=== PATIENT | male | born 1975 | race Caucasian/White ===

== ENCOUNTER 2019-07-30 18:06 | Emergency (ER) | payer MEDICAID, MEDICARE, OTHER ==
[~2019-07-30] VITALS: Ht 177.8 cm; Wt 70.0 kg
[2019-07-30 18:14] VITALS: BP 120/82
--- NOTE | 2019-07-30 18:28 | NUR ---
Note undone in EDM - 07/30/19 at 1848 by ROCHELLE BIB [employer]. L2K BY [employer] D/T INABILITY TO CARE HIMSELF. PT DENIES SI/HI. PT MUMBLING BY HIMSELF AND IT DOESN'T MAKE SENSE. PT'S AOX4. RESPS EVEN AND UNLABORED. PT SAID "NO" FOR ALL QUESTIONS WHAT THIS RN ASKED. PT PLACED ON GAWN. PT'S BELONGINGS PUT INTO 2 BAGS AND PUT INTO LOCKER. SITTER MONITORING FROM [facility] FOR SAFETY. ROOM REMAINS SECURE.
--- NOTE | 2019-07-30 18:28 | NUR ---
BIB [employer]. L2K BY RN AT [facility]-WAY D/T INABILITY TO CARE HIMSELF. PT DENIES SI/HI. PT MUMBLING BY HIMSELF AND IT DOESN'T MAKE SENSE. PT'S AOX4. RESPS EVEN AND UNLABORED. PT SAID "NO" FOR ALL QUESTIONS WHAT THIS RN ASKED. PT PLACED ON GAWN. PT'S BELONGINGS PUT INTO 2 BAGS AND PUT INTO LOCKER. SITTER MONITORING FROM [facility] FOR SAFETY. ROOM REMAINS SECURE.
--- NOTE | 2019-07-30 18:37 | NUR ---
PT AWARES OF UA.
--- NOTE | 2019-07-30 18:38 | NUR ---
MEAL TRAY ORDERED AT THIS TIME.
[2019-07-30 18:41] LABS: BASOPHILS # (AUTO) 0.04 x10^3/uL (0-0.1); BASOPHILS % (AUTO) 1 % (0-1); EOSINOPHILS # (AUTO) 0.33 x10^3/uL (0-0.4); EOSINOPHILS % (AUTO) 4 % (1-7); LYMPHOCYTES # (AUTO) 2.41 x10^3/uL (1-3.4); LYMPHOCYTES % (AUTO) 30 % (22-44); MD NO; MEAN CORPUSCULAR HEMOGLOBIN 27.6 pg (27.5-34.5); MEAN CORPUSCULAR HGB CONC 32.8 g/dL (33.2-36.2); MEAN CORPUSCULAR VOLUME 84.2 fL (81-97); MEAN PLATELET VOLUME 10.6 fL (7.4-10.4); MONOCYTES # (AUTO) 0.75 x10^3/uL (0.2-0.8); MONOCYTES % (AUTO) 9 % (2-9); NEUTROPHILS % (AUTO) 55 % (42-75); PLATELET COUNT 186 x10^3/uL (130-400); RED BLOOD COUNT 5.54 x10^6/uL (4.38-5.82); RED CELL DISTRIBUTION WIDTH 13.7 % (9.4-14.8)
--- NOTE | 2019-07-30 18:44 | NUR ---
PT AMB TO BR WITH STEADY GAIT FOR UA.
--- NOTE | 2019-07-30 18:52 | NUR ---
PT PROVIDED URINE SAMPLE AT THIS TIME. UA SENT.
[2019-07-30 18:53] LABS: ALANINE AMINOTRANSFERASE 37 U/L (12-78); ALBUMIN 3.7 g/dL (3.4-5.0); ANION GAP 5 mmol/L (5-15); CALCIUM 8.9 mg/dL (8.5-10.1); CHLORIDE 110 mmol/L (98-107); CREATININE 1.06 mg/dL (0.7-1.3)
[2019-07-30 18:54] LABS: SALICYLATE LEVEL < 1.7 mg/dL (2.8-20.0)
[2019-07-30 18:55] LABS: ALKALINE PHOSPHATASE 98 U/L (45-117); BILIRUBIN,TOTAL 0.3 mg/dL (0.2-1.0); TOTAL PROTEIN 6.8 g/dL (6.4-8.2)
--- NOTE | 2019-07-30 19:12 | NUR ---
REPORT FROM ANDREW CUEVAS. PT SITTING UP IN [facility] WATCHING TV; NAD NOTED. ROOM SECURE. SITTER PRESENT.
--- NOTE | 2019-07-30 19:20 | NUR ---
PER ERP, ATTEMPT MADE TO CONTACT FAMILY. PT WAS ABLE TO PROVIDE NAME AND PHONE NUMBER FOR A GIRLFRIEND, REESE: [phone]. REESE CALLED, NO ANSWER. ERP AWARE.
--- NOTE | 2019-07-30 20:00 | NUR ---
SI APPROPRIATE MEAL TRAY PROVIDED TO PT
--- NOTE | 2019-07-30 20:20 | NUR ---
RN FOUND FATHER'S PHONE NUMBER AMONG BELONGINGS. ERP SPEAKING WITH FATHER REGARDING PT'S CARE. SECURITY CALLED TO FIRE AND SAFETY HELPER ONE OF THE TWO BELONGINGS BAGS IT CONTAINS PATRICK/WATCH/IDENTIFICATION.
--- NOTE | 2019-07-30 20:24 | NUR ---
PER ERP, PT TO BE KEPT ON A HOLD. [facility] CONTACTED TO REQUEST THAT THEY REVIEW PT'S CHART FOR ADMIT. FATHER TO BE CONTACTED WITH UPDATES: [place] [phone] (H) OR [phone] (C)
[2019-07-30 20:38] LABS: AMPHETAMINE SCREEN, URINE Negative (Negative); BARBITURATE SCREEN, URINE Negative (Negative); BENZODIAZEPINE SCREEN, URINE Negative (Negative); CANNABINOID SCREEN, URINE Positive (Negative); COCAINE SCREEN, URINE Negative (Negative); METHADONE SCREEN, URINE Negative (Negative); OPIATE SCREEN, URINE Negative (Negative)
--- NOTE | 2019-07-30 21:04 | NUR ---
SECURITY PRESENT TO CLASSIFICATION AND TREATMENT DIRECTOR VALUABLES, PT AWARE AND COMPLIANT. INVOICE #[id number]. COPY OF INVOICE ON CHART.
--- NOTE | 2019-07-30 21:27 | NUR ---
PT AMBULATED STEADILY TO BATHROOM WITH SITTER. ROOM REMAINS SECURE. SITTER PRESENT.
--- NOTE | 2019-07-30 21:30 | NUR ---
THROUGHPUT RN: CALLED [facility] TO FOLLOW UP ON REQUEST FOR TRANSFER TO UNIT. SPOKE WITH MD ELIUD REVIEWING CHART STILL, CONTINUE AWAITING ACCEPTANCE/DENIAL. ELIUD TO CALL WITH DECISION
--- NOTE | 2019-07-30 22:21 | NUR ---
PT RESTING ON GURNEY W/ EYES CLOSED. EVEN/REGULAR RESPIRATIONS NOTED. SITTER PRESENT. ROOM SECURE.
--- NOTE | 2019-07-30 22:22 | NUR ---
THROUGHPUT RN: PT ON LEGAL 1999. SPOKE WITH ELIUD ON [facility] UNIT, DR. RENEE ACCEPTED PT, ROOM 379-2 ASSIGNED, FLOOR RN WILL BE NOEMÍ. PRIMARY RN EMETERIO UPDATED ON PT STATUS/POC
--- NOTE | 2019-07-30 22:30 | NUR ---
REPORT TO ANDREW DOWD ON 3[facility]. PT PREPARED FOR TRANSPORT.
== END 2019-07-30 22:52 ==
LOC: ED 19:30
DX: F31.9 Bipolar disorder, unspecified (principal)
CPT/HCPCS: 36415; 80053; 80178; 80307; 85025; 99285